=== PATIENT | male | born 1980 | race Caucasian/White ===

== ENCOUNTER 2025-08-03 06:17 | Day surgery (SDC) | payer OTHER, SELFPAY | END 2025-08-03 12:07 | disposition home or self-care (01) | LOC: GI 06:17 | PROVIDERS: ATTENDING PHYSICIAN Internal Medicine Gastroenterology | DX: Z12.11 Encounter for screening for malignant neoplasm of colon (principal); K64.8 Other hemorrhoids; K57.30 Diverticulosis of large intestine without perforation or abscess without bleeding; D12.0 Benign neoplasm of cecum | CPT/HCPCS: 45385; 88305 ==